=== PATIENT | male | born 1985 | race Caucasian/White ===

== ENCOUNTER 2017-02-14 09:08 | Emergency (ER) | payer BC ==
[~2017-02-14] VITALS: Ht 177.8 cm; Wt 93.0 kg
[2017-02-14 09:17] VITALS: BP 123/69
== END 2017-02-14 10:07 | disposition left against medical advice (07) ==
LOC: EME 09:08
DX: T15.92XA Foreign body on external eye, part unspecified, left eye, initial encounter (principal); Z53.21 Procedure and treatment not carried out due to patient leaving prior to being seen by health care provider